=== PATIENT | female | born 1975 | race Caucasian/White ===

== ENCOUNTER 2020-09-27 20:27 | Emergency (ER) | payer OTHER ==
[2020-09-27 20:41] VITALS: BP 112/74; PULSE 78; TEMP 98.6; BMI 27.4
[2020-09-27] MEDS ORDERED: LIDOCAINE PATCH REMOVAL MC SCH (22:00)
[2020-09-27] MEDS ORDERED: METHOCARBAMOL 500 MG TABLET PO ONE (22:26)
[2020-09-27] MEDS ORDERED: LIDOCAINE 5% TOPICAL PATCH TP ONE (22:27)
[2020-09-27] MEDS ORDERED: KETOROLAC TROMETHAMINE 60 MG/2 ML VIAL IVPUSH ONE (22:27)
[2020-09-27] MEDS ORDERED: LIDOCAINE 5% TOPICAL PATCH ONE (22:51)
[2020-09-27] MEDS ORDERED: METHOCARBAMOL 500 MG TABLET ONE (22:51)
[2020-09-27] MEDS ORDERED: KETOROLAC TROMETHAMINE 60 MG/2 ML VIAL ONE (22:51)
== END 2020-09-28 00:50 | disposition home or self-care (01) ==
LOC: JER 20:27
PROC: 3E0333Z Introduction of Anti-inflammatory into Peripheral Vein, Percutaneous Approach (ICD-10-PCS; principal; 2020-09-27)
DX: M54.12 Radiculopathy, cervical region (principal)
CPT/HCPCS: 70450-TC; 72070-TC-FY; 72100-TC-FY; 72125-TC; 73030-TC-RT-FY; 84703; 99285-25